=== PATIENT | male | born 1990 | race Caucasian/White ===

== ENCOUNTER 2020-02-24 16:15 | Emergency (ER) | payer MEDICAID ==
[~2020-02-24] VITALS: Ht 165.1 cm; Wt 68.0 kg
--- NOTE | 2020-02-24 16:17 | NUR ---
Placed in room H1 . Placed on school lunch monitor, blood pressure machine and pulse oximeter. To gown for exam. Side rails up.
[2020-02-24 16:18] VITALS: BP_SYST 115
--- NOTE | 2020-02-24 16:18 | NUR ---
Pt brought by self, A&Ox4, pt presents to ER accompanied by PD for medical clearance due to Hx of asthma, VS WNL, respirations even and unlabored, cap refill <3.
--- NOTE | 2020-02-24 16:22 | NUR ---
Dr Nava examining patient at bedside
[2020-02-24 16:27] VITALS: BP_SYST 115
--- NOTE | 2020-02-24 16:28 | NUR ---
Patient given written and verbal discharge instructions and verbalizes understanding. ER MD discussed with patient the results and treatment provided. Patient in stable condition. ID arm band removed. No Rx given. Patient educated on pain management and to follow up with PMD. Pain Scale 0/10. Opportunity for questions provided and answered. Medication side effect fact sheet provided.
== END 2020-02-24 16:28 ==
LOC: SED 16:15
DX: Z02.89 Encounter for other administrative examinations (principal); J45.909 Unspecified asthma, uncomplicated
CPT/HCPCS: 99283